=== PATIENT | female | born 1980 | race Hispanic/Latino ===

== ENCOUNTER 2016-10-27 11:30 | Day surgery (SDC) | payer MEDICAID ==
[2016-10-25 13:22] LABS: Hematocrit 28.4 % (30.3-42.9); Hemoglobin 8.6 gm/dl (10.1-14.3)
[~2016-10-27 11:30] MED LIST: BENADRYL PO ONE; NACL 0.9% 250ML 250 ML IV ONE; TYLENOL PO ONE
[2016-10-27] MEDS ORDERED: LASIX IV ONE (13:30)
[2016-10-27] MEDS ORDERED: FLUSH HEPARIN IV ONE (14:37)
[2016-10-27 16:46] VITALS: BP 145/86
== END 2016-10-27 16:45 | disposition home or self-care (01) ==
LOC: OPU 11:30
DX: D64.9 Anemia, unspecified (principal)
CPT/HCPCS: 36415; 36430; 85018; 86850; 86900; 86901; 86920; 96374; 96375; J1642; J1720; J1940; J7050; P9016

== ENCOUNTER 2017-12-05 09:11 | Emergency (ER) | payer MEDICAID, OTHER ==
[2017-12-05 09:59] LABS: Basophils # (Auto) 0.1 K/mm3 (0.0-0.1); Basophils % (Auto) 1.8 % (0.0-1.8); Eosinophils # (Auto) 0.1 K/mm3 (0.0-0.4); Eosinophils % (Auto) 1.3 % (0.0-4.3); Lymphocytes # (Auto) 2.1 K/mm3 (1.2-5.4); Lymphocytes % (Auto) 27.6 % (13.4-35.0); Mean Corpuscular HGB Conc 29 % (30-34); Monocytes # (Auto) 0.6 K/mm3 (0.0-0.8); Monocytes % (Auto) 8.3 % (0.0-7.3); Platelet Count 383 K/mm3 (140-440); Red Blood Count 3.61 M/mm3 (3.65-5.03)
[2017-12-05 10:05] LABS: Hematocrit 22.3 % (30.3-42.9); Hemoglobin 6.4 gm/dl (10.1-14.3); Mean Corpuscular Volume 62 fl (79-97)
[2017-12-05 10:06] LABS: Mean Corpuscular Hemoglobin 18 pg (28-32); Red Cell Distribution Width 24.8 % (13.2-15.2)
[2017-12-05 10:09] LABS: BUN/Creatinine Ratio 27; Blood Urea Nitrogen 16 mg/dL (7-17); Calcium 9.3 mg/dL (8.4-10.2); Hemolysis Index 4
[2017-12-05 10:50] LABS: INR 0.82 (0.87-1.13)
--- NOTE | 2017-12-05 11:17 | Cat Scan Report ---
CT HEAD WITHOUT CONTRAST INDICATION: CVA signs and symptoms 3 days ago with left facial droop. Breast cancer. COMPARISON: 09/21/2015. FINDINGS: Noncontrast head CT demonstrates stable ventricles and sulci without acute or recent infarct, hemorrhage, mass effect or midline shift. No abnormal extra-axial fluid collections. Posterior fossa structures and basilar cisterns appear within normal limits. Symmetric imaged eye globes. Clear visualized paranasal sinuses and mastoid air cells. Intact calvarium. Normal overlying scalp soft tissues. Anterior maxillary radiopaque dental material again noted. CONCLUSION: No acute intracranial CT abnormality, as described. Thank you for the opportunity to participate in this patient's care.
--- NOTE | 2017-12-05 11:22 | Emergency Department Report ---
- General Chief complaint: Neuro Symptoms/Deficit Stated complaint: WEAK, RIGHT ARM PAIN, LEFT SIDE FACE NUMB Time Seen by Provider: 12/05/17 10:02 Source: patient Mode of arrival: Ambulatory Limitations: No Limitations - History of Present Illness Initial comments: Ms. Momin is a very pleasant 37-year-old female with history of breast cancer. On Sunday she noticed weakness in her right hand and right leg. She felt as if she had to brass pickler her leg. She was able to walk and work without difficulty since that time. On Sunday morning she noticed left facial droop. She denies headache. Denies visual changes. She does not have the right-sided weakness currently. No previous history of CVA. 2 years ago she was treated for stage III breast cancer involving the rib cage, chest wall and lymph nodes. She underwent radiation and chemotherapy after 2 breast surgeries. She is currently in remission there has been unable to follow -up with oncologist due to lack of health insurance. MD Complaint: focal weakness -: Sudden, days(s) (5) Location: RUE, RLE, L face Consistency: constant (left facial weakness still present), now resolved (right- sided weakness, resolved) Improves with: none Worsens with: none Associated Symptoms: denies other symptoms - Related Data Home Medications Medication Instructions Recorded Confirmed Last Taken Ascorbic Acid [Vitamin C] 500 mg PO BID 07/31/16 10/27/16 10/26/16 Ferrous Sulfate [Feosol] 325 mg PO BID 07/31/16 10/27/16 10/26/16 Previous Rx's Medication Instructions Recorded Last Taken Type Acyclovir [Zovirax Tab] 400 mg PO 5XD 10 Days #50 tablet 12/05/17 Unknown Rx Dextran 70/Hypromellose 1 each OS 5XD #1 droperette 12/05/17 Unknown Rx [Artificial Tears] Mineral Oil/Petrolatum,White 7 gm OS QHS #7 oint...g. 12/05/17 Unknown Rx [Refresh Lacri-Lube Ointment] predniSONE [Deltasone] 60 mg PO QDAY 6 Days #18 tab 12/05/17 Unknown Rx Allergies Allergy/AdvReac Type Severity Reaction Status Date / Time No Known Allergies Allergy Verified 11/25/15 13:01 ED Review of Systems ROS: Stated complaint: WEAK, RIGHT ARM PAIN, LEFT SIDE FACE NUMB Other details as noted in HPI Comment: All other systems reviewed and negative Constitutional: denies: chills, fever, malaise Respiratory: denies: cough Cardiovascular: denies: chest pain Neurological: weakness. denies: headache, numbness, paresthesias, confusion, abnormal gait, vertigo ED Past Medical Hx - Past Medical History Previous Medical History?: Yes Hx Hypertension: Yes Hx Congestive Heart Failure: No Hx Diabetes: No Hx Asthma: No Hx COPD: No Hx HIV: No Additional medical history: right breast pain - Surgical History Past Surgical History?: Yes Hx Breast Surgery: Yes (RIGHT MASTECTOMY NOV 2015) - Social History Smoking Status: Never Smoker Substance Use Type: Prescribed - Medications Home Medications: Home Medications Medication Instructions Recorded Confirmed Last Taken Type Ascorbic Acid [Vitamin C] 500 mg PO BID 07/31/16 10/27/16 10/26/16 History Ferrous Sulfate [Feosol] 325 mg PO BID 07/31/16 10/27/16 10/26/16 History Acyclovir [Zovirax Tab] 400 mg PO 5XD 10 Days #50 tablet 12/05/17 Unknown Rx Dextran 70/Hypromellose 1 each OS 5XD #1 droperette 12/05/17 Unknown Rx [Artificial Tears] Mineral Oil/Petrolatum,White 7 gm OS QHS #7 oint...g. 12/05/17 Unknown Rx [Refresh Lacri-Lube Ointment] predniSONE [Deltasone] 60 mg PO QDAY 6 Days #18 tab 12/05/17 Unknown Rx ED Physical Exam - General Limitations: No Limitations General appearance: alert, in no apparent distress, other (no spontaneous blinking on the left side,) - Head Head exam: Present: atraumatic, normocephalic - Eye Eye exam: Present: normal appearance, PERRL, EOMI. Absent: scleral icterus, conjunctival injection, nystagmus Pupils: Present: normal accommodation - ENT ENT exam: Present: normal exam, mucous membranes moist - Neck Neck exam: Present: normal inspection. Absent: meningismus - Respiratory Respiratory exam: Present: normal lung sounds bilaterally. Absent: respiratory distress, wheezes, rales, rhonchi, stridor - Cardiovascular Cardiovascular Exam: Present: regular rate, normal rhythm, normal heart sounds. Absent: systolic murmur, diastolic murmur, rubs, gallop - GI/Abdominal GI/Abdominal exam: Present: soft, normal bowel sounds. Absent: distended, tenderness, guarding, rebound - Extremities Exam Extremities exam: Present: normal inspection, full ROM, normal capillary refill. Absent: tenderness, pedal edema - Back Exam Back exam: Present: normal inspection - Neurological Exam Neurological exam: Present: alert, oriented X3, normal gait, reflexes normal, other (left facial paralysis involving the upper and lower face involved, cranial nerves otherwise intact [id number] without dysmetria, 5 out of 5 strength in all 4 extremities sensation to light touch in all 4 extremities) . Absent: motor sensory deficit - Psychiatric Psychiatric exam: Present: normal affect, normal mood - Skin Skin exam: Present: warm, dry, intact, normal color. Absent: rash ED Course Vital Signs 12/05/17 12/05/17 09:28 11:01 Temperature 98.9 F Pulse Rate 124 H 104 H Respiratory 20 16 Rate Blood Pressure 121/67 Blood Pressure 121/67 [Left] O2 Sat by Pulse 100 100 Oximetry ED Medical Decision Making - Lab Data Result diagrams: 12/05/17 09:39 12/05/17 09:39 Laboratory Results - last 24 hr 12/05/17 12/05/17 12/05/17 09:39 09:39 09:39 WBC 7.7 RBC 3.61 L Hgb 6.4 L Hct 22.3 L MCV 62 L MCH 18 L MCHC 29 L RDW 24.8 H Plt Count 383 Lymph % (Auto) 27.6 Lamb % (Auto) 8.3 H Eos % (Auto) 1.3 Baso % (Auto) 1.8 Lymph # 2.1 Lamb # 0.6 Eos # 0.1 Baso # 0.1 Seg Neutrophils % 61.0 Seg Neutrophils # 4.7 PT 11.7 L INR 0.82 L APTT 26.0 Thrombin Time Sodium 139 Potassium 3.6 Chloride 101.8 Carbon Dioxide 24 Anion Gap 17 BUN 16 Creatinine 0.6 L Estimated GFR > 60 BUN/Creatinine Ratio 27 Glucose 114 H Calcium 9.3 Troponin T < 0.010 12/05/17 09:39 WBC RBC Hgb Hct MCV MCH MCHC RDW Plt Count Lymph % (Auto) Lamb % (Auto) Eos % (Auto) Baso % (Auto) Lymph # Lamb # Eos # Baso # Seg Neutrophils % Seg Neutrophils # PT INR APTT Thrombin Time 16.4 Sodium Potassium Chloride Carbon Dioxide Anion Gap BUN Creatinine Estimated GFR BUN/Creatinine Ratio Glucose Calcium Troponin T Vital Signs - 24 hr 12/05/17 12/05/17 09:28 11:01 Temperature 98.9 F Pulse Rate 124 H 104 H Respiratory 20 16 Rate Blood Pressure 121/67 Blood Pressure 121/67 [Left] O2 Sat by Pulse 100 100 Oximetry - EKG Data 12/05/17 11:25 EKG obtained at 0 937 Sinus tachycardia of 113 bpm normal axis normal QT interval normal MT interval normal Qt interval no signs of infarct nonspecific T-wave pattern 12/05/17 15:56 No - Medical Decision Making 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 Unclear the etiology of right arm/hand and leg weakness. Will obtain MRI to rule out CVA, brain infarct. I spoke with radiologist who read the MRI. MRI brain negative for infarct. Unfortunately, MRI brain revealed 2.6 cm mass in the posterior fossa near the skull base. He recommended MRI brain with IV contrast. My colleague will f/u MRI results. Patient's oncologist is Dr. Winkler. Critical care attestation.: If time is entered above; I have spent that time in minutes in the direct care of this critically ill patient, excluding procedure time. ED Disposition Clinical Impression: Alcantara's palsy, Brain mass, Breast cancer Disposition: - TO HOME OR SELFCARE Is pt being admited?: No Does the pt Need Aspirin: No Condition: Stable Instructions: Alcantara Palsy (ED) Prescriptions: Mineral Oil/Petrolatum,White [Refresh Lacri-Lube Ointment] 7 gm OS QHS #7 oint...g. Acyclovir [Zovirax Tab] 400 mg PO 5XD 10 Days #50 tablet Dextran 70/Hypromellose [Artificial Tears] 1 each OS 5XD #1 droperette predniSONE [Deltasone] 60 mg PO QDAY 6 Days #18 tab
[2017-12-05] MEDS ORDERED: DELTASONE PO ONE (13:08)
[2017-12-05] MEDS ORDERED: ZOVIRAX PO ONE (14:08)
[2017-12-05] MEDS ORDERED: DELTASONE ONE (15:31)
--- NOTE | 2017-12-05 15:57 | Magnetic Resonance Report ---
MRA HEAD WITHOUT CONTRAST INDICATION: Right-sided weakness, facial droop. Breast cancer. COMPARISON: None similar. FINDINGS: MRA of the head performed without intravenous contrast and demonstrates no evidence of flow-limiting stenosis, occlusion or vascular malformation. Please note that detection of aneurysms less than 5 mm is limited on this exam. CONCLUSION: Normal study of the [place]. Thank you for the opportunity to participate in this patient's care.
--- NOTE | 2017-12-05 17:45 | Magnetic Resonance Report ---
FINAL REPORT EXAM: MR BRAIN WO CON HISTORY: left facial weakness right-sided weakness TECHNIQUE: MRI brain without contrast PRIORS: None. FINDINGS: There is normal signal throughout the brain parenchyma. No evidence for brain edema pattern or mass effect. Ventricles and sulci are within normal limits. No evidence for acute intra-axial or extra-axial hemorrhage. No evidence for acute restriction on diffusion-weighted study. Brainstem and posterior fossa structures are unremarkable. IMPRESSION: Negative. No focal abnormality identified
--- NOTE | 2017-12-05 18:00 | Magnetic Resonance Report ---
FINAL REPORT EXAM: MR BRAIN W CON HISTORY: brain mass TECHNIQUE: MRI brain with contrast PRIORS: Correlated with noncontrast MR of the same date FINDINGS: On postcontrast exam no foci of abnormal parenchymal enhancement are identified. No evidence for meningeal thickening. There is an enhancing mass at the left cerebellopontine angle extending into the left mastoid with some dural enhancement noted. The mass measures 3.1 x 2.0 by 1.4 centimeters. There is relatively homogeneous enhancement mass does not extend to the internal auditory canal. It is slightly hypointense to brain parenchyma on T1 weighted sequence and hyperintense on T2 weighted sequence. No evidence for restriction on diffusion-weighted image IMPRESSION: Left cerebellopontine angle mass. Differential considerations include schwannoma, ependymoma or meningioma
--- NOTE | 2017-12-05 18:07 | Emergency Department Report ---
Blank Doc - Documentation Documentation: Asked to follow-up on MRI report by Dr. Padilla. FINAL REPORT EXAM: MR BRAIN W CON HISTORY: brain mass TECHNIQUE: MRI brain with contrast PRIORS: Correlated with noncontrast MR of the same date FINDINGS: On postcontrast exam no foci of abnormal parenchymal enhancement are identified. No evidence for meningeal thickening. There is an enhancing mass at the left cerebellopontine angle extending into the left mastoid with some dural enhancement noted. The mass measures 3.1 x 2.0 by 1.4 centimeters. There is relatively homogeneous enhancement mass does not extend to the internal auditory canal. It is slightly hypointense to brain parenchyma on T1 weighted sequence and hyperintense on T2 weighted sequence. No evidence for restriction on diffusion-weighted image IMPRESSION: Left cerebellopontine angle mass. Differential considerations include schwannoma, ependymoma or meningioma Transcribed By: CLAUS Dictated By: CORY RANDHAWA MD Electronically Authenticated By: CORY RANDHAWA MD Signed Date/Time: 12/05/171354 DD/ 54 TD/TT: 12/05/171354 Patient also complains of numbness and weakness of the right upper and lower extremity. Hospitalist paged for admission (Dr Whatley)
--- NOTE | 2017-12-05 18:30 | History and Physical Report ---
History of Present Illness Chief complaint: I feel weak, and my face in numb History of present illness: 37 YO Female with Breast Cancer S/P Mastectomy Chemo and Radiation therapy presents to ED for evaluation. Pt states that she has experienced weakness in her right hand and right leg as well as left facial droop over the past 5 days with worsening symptoms over the past 1day. . Pt state that she in unable to walk due to right leg weakness. No reports of fever, chills, CP, Palpitations, NVD, Syncope, Productive cough, Trauma, loss of bowel or bladder continence, or recent ill contacts. Pt seen and evaluated in ED and underwent MRI brain which revealed Left Cerebellopontine angle lesion. Neurosurgery consulted and recommend transfer to tertiary facility. Past History Past Medical History: cancer Past Surgical History: mastectomy Social history: Family history: hypertension Medications and Allergies Allergies Allergy/AdvReac Type Severity Reaction Status Date / Time No Known Allergies Allergy Verified 11/25/15 13:01 Home Medications Medication Instructions Recorded Confirmed Last Taken Type No Known Home Medications [No 12/05/17 12/05/17 Unknown History Reported Home Medications] Review of Systems Constitutional: no weight loss, no weight gain, no fever, no chills Ears, nose, mouth and throat: no ear pain, no ear discharge, no tinnitis, no decreased hearing, no nose pain Breasts: no change in shape, no swelling, no mass Cardiovascular: no chest pain, no orthopnea, no palpitations, no rapid/ irregular heart beat, no edema, no syncope Respiratory: no cough, no cough with sputum, no excessive sputum, no hemoptysis , no shortness of breath, no dyspnea on exertion Gastrointestinal: no abdominal pain, no nausea, no vomiting, no diarrhea, no constipation, no change in bowel habits Genitourinary Female: no pelvic pain, no flank pain, no menorrhagia, no dysuria , no urinary frequency, no urgency, no stress incontinence Menstruation: no currently menstrual, no premenarcheal, no post hysterectomy, no ammenorrhea, no ammenorrhea on BC, no period normal, no period heavy Rectal: no pain, no incontinence, no bleeding Musculoskeletal: no neck stiffness, no neck pain, no shooting arm pain, no arm numbness/tingling, no low back pain, no shooting leg pain Integumentary: no rash, no pruritis, no redness, no sores, no wounds, no jaundice, no boils Neurological: no head injury, no transient paralysis, no paralysis, no weakness , no parathesias, no numbness, no tingling, no seizures Psychiatric: no anxiety, no memory loss, no change in sleep habits, no sleep disturbances, no insomnia, no hypersomnia, no change in appetite, no change in libido Endocrine: no cold intolerance, no heat intolerance, no polyphagia, no excessive thirst, no polydipsia, no polyuria, no nocturia, no excessive sweating Hematologic/Lymphatic: no easy bruising, no easy bleeding, no lymphadenopathy, no lymphedema Allergic/Immunologic: no urticaria, no allergic rhinitis, no wheezing Exam - Constitutional Vitals: Temp Pulse Resp BP Pulse Ox 98.9 F 99 H 16 115/88 100 12/05/17 09:28 12/05/17 15:45 12/05/17 15:45 12/05/17 15:45 12/05/17 15:45 General appearance: Present: mild distress - EENT Eyes: Present: PERRL ENT: hearing intact, clear oral mucosa - Neck Neck: Present: supple, normal ROM - Respiratory Respiratory effort: normal Respiratory: bilateral: CTA - Cardiovascular Heart Sounds: Present: S1 & S2. Absent: rub, click - Extremities Extremities: pulses symmetrical, No edema Peripheral Pulses: within normal limits - Abdominal General gastrointestinal: Present: soft, non-tender, non-distended, normal bowel sounds Female genitourinary: Present: normal - Integumentary Integumentary: Present: clear, warm, dry - Musculoskeletal Musculoskeletal: right sided weakness - Psychiatric Psychiatric: appropriate mood/affect, intact judgment & insight - Neurologic Neurologic: focal deficits, moves all extremities, no gait normal Results - Labs CBC & Chem 7: 12/05/17 09:39 12/05/17 09:39 Labs: Abnormal lab results 12/05/17 12/05/17 12/05/17 Range/Units 09:39 09:39 09:39 RBC 3.61 L (3.65-5.03) M/mm3 Hgb 6.4 L (10.1-14.3) gm/dl Hct 22.3 L (30.3-42.9) % MCV 62 L (79-97) fl MCH 18 L (28-32) pg MCHC 29 L (30-34) % RDW 24.8 H (13.2-15.2) % [place] % (Auto) 8.3 H (0.0-7.3) % PT 11.7 L (12.2-14.9) Sec. INR 0.82 L (0.87-1.13) Creatinine 0.6 L (0.7-1.2) mg/dL Glucose 114 H (65-100) mg/dL Assessment and Plan - Patient Problems (1) Brain mass Current Visit: Yes Status: Acute Plan to address problem: CT Head, MRI Brain, MRA Brain, Nerurosurgery consulted, Serial neuro exam, Transfer to tertiary facility for Neurosurgical care and evaluation. (2) Hemiparesis Current Visit: Yes Status: Acute Qualifiers: Hemiparesis laterality: right dominant side Plan to address problem: CT head, MRI, MRA, Neuro checks, supportive care. (3) Breast cancer Current Visit: Yes Status: Acute Qualifiers: Laterality: right Plan to address problem: S/P chemo and radiation therapy, Outpatient oncology F/U. (4) DVT prophylaxis Current Visit: Yes Status: Acute
[2017-12-05 20:22] VITALS: BP 115/71
== END 2017-12-05 21:38 | disposition home or self-care (01) ==
LOC: ED 09:11
DX: G51.0 Bell's palsy (principal); Z85.3 Personal history of malignant neoplasm of breast; I10 Essential (primary) hypertension; Z90.11 Acquired absence of right breast and nipple; G93.89 Other specified disorders of brain
CPT/HCPCS: 36415; 70450; 70544; 70551; 70552; 80048; 84484; 85025; 85610; 85670; 85730; 93005; 93010; 99284; A9577; J7512

== ENCOUNTER 2019-12-22 08:46 | Observation (INO) | payer MEDICARE ==
[2019-12-22] MEDS ORDERED: SODIUM CHLORIDE 0.9% 1000 ML 1,000 ML IV ONE (09:23)
--- NOTE | 2019-12-22 09:23 | Emergency Department Report ---
HPI - General Chief Complaint: Chest Pain Time Seen by Provider: 12/22/19 09:06 - HPI HPI: 39-year-old -Citizen Of [place] female presents to the emergency department via EMS from home with complaint of acute shortness of breath that started just after waking up while the patient was going to the bathroom. She denies any fever, chest pain, coughing, lower extremity swelling, back pain. She did not take anything for symptoms prior to presentation. Patient has a past medical history of previous brain mass on chemotherapy, spinal surgery in July of last year, and history of hypertension. She is not on any anticoagulation. No recent travel or sick contacts at home. Her primary care physician is Dr. Rogelio Lawrence and her oncologist is a Dr. Garcia at [facility]. ED Past Medical Hx - Past Medical History Previous Medical History?: Yes Hx Hypertension: No Hx CVA: No Hx Congestive Heart Failure: No Hx Diabetes: No Hx Deep Vein Thrombosis: No Hx Arthritis: No Hx Seizures: No Hx Asthma: No Hx COPD: No Hx HIV: No Additional medical history: right breast pain - Surgical History Past Surgical History?: Yes Hx Breast Surgery: Yes (RIGHT MASTECTOMY NOV 2015) - Social History Smoking Status: Never Smoker Substance Use Type: None - Medications Home Medications: Home Medications Medication Instructions Recorded Confirmed Last Taken Type No Known Home Medications [No 12/05/17 12/05/17 Unknown History Reported Home Medications] ED Review of Systems ROS: Stated complaint: POSS STEMI Other details as noted in HPI Comment: All other systems reviewed and negative Constitutional: denies: chills, fever Eyes: denies: eye pain, vision change ENT: denies: ear pain, throat pain Respiratory: shortness of breath. denies: cough Cardiovascular: denies: chest pain, edema Gastrointestinal: denies: abdominal pain, vomiting Genitourinary: denies: dysuria, discharge Musculoskeletal: denies: back pain, arthralgia Skin: denies: rash, lesions Neurological: denies: headache, weakness Physical Exam - Physical Exam Vital Signs: Vital Signs 12/22/19 09:08 Temperature 98.5 F Pulse Rate 97 H Respiratory 16 Rate Blood Pressure 124/82 O2 Sat by Pulse 95 Oximetry Physical Exam: GENERAL: The patient is well-developed well-nourished. HENT: Normocephalic. Atraumatic. Patient has moist mucous membranes. EYES: Extraocular motions are intact. NECK: Supple. Trachea is midline. CHEST/LUNGS: Clear to auscultation. There is no respiratory distress noted. HEART/CARDIOVASCULAR: Regular. There is mild to moderate tachycardia. There is no murmur. ABDOMEN: Abdomen is soft, nontender. Patient has normal bowel sounds. There is no abdominal distention. SKIN: Skin is warm and dry. NEURO: The patient is awake, alert, and oriented. The patient is cooperative. Normal speech. MUSCULOSKELETAL: There is no tenderness or deformity. There is no evidence of acute injury. ED Course Vital Signs 12/22/19 09:08 Temperature 98.5 F Pulse Rate 97 H Respiratory 16 Rate Blood Pressure 124/82 O2 Sat by Pulse 95 Oximetry - Consultations Consultation #1: 12/22/19 17:13 I spoke with the general surgeon on-call, Dr. Edgar, regarding the CT angiography chest findings of small right-sided pneumothorax. She took a look at the imaging study and did not feel that it was something that would be a ppropriately treated by a chest tube. She has agreed to consult on this patient. ED Medical Decision Making - Lab Data Result diagrams: 12/22/19 10:06 12/22/19 10:06 - EKG Data -: EKG Interpreted by Me EKG shows normal: sinus rhythm, axis, intervals, QRS complexes, ST-T waves Rate: tachycardia (124 bpm) - EKG Data When compared to previous EKG there are: previous EKG unavailable Interpretation: other (Sinus tach at 124 bpm) - Radiology Data Radiology results: report reviewed, image reviewed interpreted by me: Chest x-ray shows elevated left-sided hemidiaphragm with underlying bowel gas and stool. No obvious pneumonia, pleural effusions. CT angio chest INDICATION / CLINICAL INFORMATION: SOB, elevated dimer. TECHNIQUE: Axial CT images were obtained after injection of Omnipaque 350, 100 cc IV contrast using CTA protocol. 3 plane MIP / 3D reconstructions were produced. All CT scans at this location are performed using CT dose reduction for ALARA by means of automated exposure control. COMPARISON: Chest x-ray earlier the same day. FINDINGS: Negative for aneurysm, dissection or pulmonary embolus. Elevation of the left hemidiaphragm remains with moderate parenchymal opacity likely representing atelectasis. Milder changes are present the right base. Mild interstitial thickening likely represents underlying edema and mild chronic interstitial disease. A right pneumothorax is small. Negative for significant pleural fluid. No suspicious mediastinal mass or adenopathy. Previo us posterior fusion at the thoracic spine. Underlying compression and bony abnormality is partially imaged inferiorly. IMPRESSION: 1. Negative for pulmonary embolus or definitive pneumonia. 2. Mild edema, mild chronic interstitial disease and small right pneumothorax. 3. Elevation the left hemidiaphragm. Suspected basilar atelectasis left greater than right. - Medical Decision Making This patient presents with some acute shortness of breath that started after she woke up this morning. On examination the patient has some tachycardia and mild tachypnea but does not appear in any respiratory or acute distress. She was given a breathing treatment and a few doses of pain medication. EKG did not show any signs of ST elevation NE or dysrhythmia. Chest x-ray showed a moderately elevated left hemidiaphragm with some bowel gas and stool underneath. Patient's labs were mostly unremarkable including negative troponins x2 but she did have an elevated d-dimer level of about 1000. For this reason a CT angiography of the chest was done that did not show any pulmonary embolism, dissection, but did show a small right-sided pneumothorax. There was also some mild interstitial edema versus interstitial lung disease, however BNP was very low, and the patient does not appear to have congestive heart failure. General surgery was contacted and consulted. The patient will be admitted to the hospital for further evaluation and treatment and was accepted for admission by the hospitalist, Dr. Whatley. - Differential Diagnosis PE, pneumonia, CHF, pneumothorax Critical Care Time: Yes Critical care time in (mins) excluding proc time.: 35 Critical care attestation.: If time is entered above; I have spent that time in minutes in the direct care of this critically ill patient, excluding procedure time. Due to the immediate potential for life-threatening deterioration due to underlying pulmonary condition, I spent 35 minutes of critical care time with the patient. Critical care time was spent on this patient in doing her initial evaluation, multiple re-evaluations, ordering and interpretation of labs and imaging, discussion with the general surgeon and multiple discussion with the patient. Critical Care Time: 35 minutes ED Disposition Clinical Impression: Pneumothorax, right, Hypokalemia Dyspnea Qualifiers: Dyspnea type: shortness of breath Qualified Code(s): R06.02 - Shortness of breath; R06.00 - Dyspnea, unspecified; R06.01 - Orthopnea Disposition: DC-09 OP ADMIT IP TO THIS HOSP Is pt being admited?: Yes Condition: Serious Time of Disposition: 17:17
--- NOTE | 2019-12-22 09:53 | XRay Report ---
CHEST 1 VIEW 12/22/2019 8:41 AM INDICATION / CLINICAL INFORMATION: MAIN: SOB; CHEST PAIN. COMPARISON: Chest x-ray 08/11/2016 FINDINGS: SUPPORT DEVICES: Left subclavian Port-A-Cath has tip in SVC. HEART / MEDIASTINUM: No significant abnormality. LUNGS / PLEURA: Mild interstitial edema, new moderate elevation left hemidiaphragm with left basilar atelectasis No pneumothorax. ADDITIONAL FINDINGS: No significant additional findings. IMPRESSION: 1. Mild CHF. 2. Elevated left hemidiaphragm, new since previous study. Signer Name: Mark Raymundo MD Signed: 12/22/2019 9:49 AM Workstation Name: [id number]
[2019-12-22] MEDS ORDERED: IPRATROPIUM/ALBUTEROL SULFATE 3 ML AMPUL.NEB IH ONE (10:59)
[2019-12-22 11:02] LABS: Basophils % (Auto) 0.2 % (0.0-1.8); Eosinophils % (Auto) 0.2 % (0.0-4.3); Hemoglobin 10.2 gm/dl (10.1-14.3); Lymphocytes # (Auto) 0.3 K/mm3 (1.2-5.4); Mean Corpuscular HGB Conc 32 % (30-34); Mean Corpuscular Volume 79 fl (79-97); Monocytes # (Auto) 0.7 K/mm3 (0.0-0.8); Monocytes % (Auto) 12.6 % (0.0-7.3); Platelet Count 333 K/mm3 (140-440); Red Blood Count 4.04 M/mm3 (3.65-5.03)
[2019-12-22 11:07] LABS: Red Cell Distribution Width 22.6 % (13.2-15.2)
[2019-12-22 11:27] LABS: Alanine Aminotransferase 24 units/L (7-56); Albumin 3.7 g/dL (3.9-5); BUN/Creatinine Ratio 30; Blood Urea Nitrogen 9 mg/dL (7-17); Calcium 8.8 mg/dL (8.4-10.2); Hemolysis Index 2
[2019-12-22] MEDS ORDERED: POTASSIUM CHLORIDE ER 10 MEQ TAB PO ONE (11:29)
[2019-12-22] MEDS ORDERED: MORPHINE 4 MG/1 ML INJ IV ONE ×3 (11:43→16:23)
[2019-12-22] MEDS ORDERED: MORPHINE 2 MG/1 ML INJ ONE (13:50)
--- NOTE | 2019-12-22 15:34 | Cat Scan Report ---
CT angio chest INDICATION / CLINICAL INFORMATION: SOB, elevated dimer. TECHNIQUE: Axial CT images were obtained after injection of Omnipaque 350, 100 cc IV contrast using CTA protocol . 3 plane MIP / 3D reconstructions were produced. All CT scans at this location are performed using C T dose reduction for ALARA by means of automated exposure control. COMPARISON: Chest x-ray earlier the same day. FINDINGS: Negative for aneurysm, dissection or pulmonary embolus. Elevation of the left hemidiaphragm remains w ith moderate parenchymal opacity likely representing atelectasis. Milder changes are present the righ t base. Mild interstitial thickening likely represents underlying edema and mild chronic interstitial disease . A right pneumothorax is small. Negative for significant pleural fluid. No suspicious mediastinal mass or adenopathy. Previous posterior fusion at the thoracic spine. Underlying compression and bony abnormality is parti ally imaged inferiorly. IMPRESSION: 1. Negative for pulmonary embolus or definitive pneumonia. 2. Mild edema, mild chronic interstitial disease and small right pneumothorax. 3. Elevation the left hemidiaphragm. Suspected basilar atelectasis left greater than right. Signer Name: Long Lau MD Signed: 12/22/2019 3:30 PM Workstation Name: [id number]
[2019-12-22] MEDS ORDERED: ALBUTEROL 2.5 MG/3 ML NEBU IH PRN (16:10)
[2019-12-22] MEDS ORDERED: ONDANSETRON 4 MG/2 ML INJ IV PRN (16:10)
[2019-12-22] MEDS ORDERED: ACETAMINOPHEN 325 MG TAB PO PRN (16:10)
--- NOTE | 2019-12-22 16:10 | History and Physical Report ---
History of Present Illness Chief complaint: It hurts when i breathe History of present illness: 39 YO Female with BrCA S/P Mastectomy presents to ED for evaluation. Patient states that upon awaking from sleep today and while walking to the bathroom she experienced a sudden onset of chest pain and shortness of breath. Patient states that the pain is worsened with deep breathing and relieved somewhat with rest and shallow breathing. EMS notified and upon arrival the patient was found to be in distress and subsequently transported to [facility] for further evaluation and care. Patient seen and evaluated in the emergency department. Lab and imaging studies reviewed. Patient found to have a small right apical pneumothorax on CT scan of the chest. Patient placed on supplemental oxygen. Surgery team consult placed in ED. Patient placed in observation status and admitted to medical floor. Patient denies fever, chills, palpitations, trauma, unintentional weight loss, bone pain, night sweats, recent ill contacts. No prior admission for review. No medication listed for reconciliation at time of admission. Past History Past Medical History: cancer, other (See HPI) Past Surgical History: mastectomy Social history: . denies: smoking, alcohol abuse, prescription drug abuse Family history: no significant family history (Reviewed) Medications and Allergies Allergies Allergy/AdvReac Type Severity Reaction Status Date / Time No Known Allergies Allergy Verified 11/25/15 13:01 Home Medications Medication Instructions Recorded Confirmed Last Taken Type No Known Home Medications [No 12/05/17 12/05/17 Unknown History Reported Home Medications] Active Meds: Active Medications Sodium Chloride (Nacl 0.9% 1000 Ml) 1,000 mls @ 125 mls/hr IV ONCE ONE Stop: 12/22/19 17:22 Last Admin: 12/22/19 09:35 Dose: 125 mls/hr Documented by: Review of Systems Constitutional: no weight loss, no weight gain, no fever, no chills Ears, nose, mouth and throat: no ear pain, no ear discharge, no tinnitis, no nose pain, no nasal congestion, no nasal discharge Breasts: no change in shape, no swelling, no mass Cardiovascular: chest pain, shortness of breath Respiratory: shortness of breath, pleurisy Gastrointestinal: no abdominal pain, no nausea, no vomiting, no diarrhea, no constipation Genitourinary Female: no pelvic pain, no flank pain, no menorrhagia, no dysuria, no urinary frequency, no urgency Rectal: no pain, no incontinence, no bleeding Musculoskeletal: no neck stiffness, no neck pain, no shooting arm pain, no arm numbness/tingling Integumentary: no rash, no pruritis, no redness, no sores, no wounds Neurological: no head injury, no transient paralysis, no tingling, no seizures, no syncope Psychiatric: no anxiety, no memory loss, no change in sleep habits, no sleep disturbances, no insomnia, no change in libido Endocrine: no cold intolerance, no heat intolerance, no polyphagia, no polydipsia, no nocturia, no excessive sweating, no flushing Hematologic/Lymphatic: no easy bruising, no easy bleeding, no lymphadenopathy Allergic/Immunologic: no urticaria, no persistent infections, no angioedema Exam - Constitutional Vitals: Temp Pulse Resp BP Pulse Ox 98.5 F 130 H 16 137/88 96 12/22/19 09:08 12/22/19 15:12 12/22/19 15:12 12/22/19 15:12 12/22/19 15:12 General appearance: Present: mild distress - EENT Eyes: Present: PERRL ENT: hearing intact, clear oral mucosa - Neck Neck: Present: supple, normal ROM - Respiratory Respiratory effort: normal Respiratory: right: diminished - Cardiovascular Heart Sounds: Present: S1 & S2. Absent: rub, click - Extremities Extremities: pulses symmetrical, No edema Peripheral Pulses: within normal limits - Abdominal General gastrointestinal: Present: soft, non-tender, non-distended, normal bowel sounds Female genitourinary: Present: normal - Integumentary Integumentary: Present: clear, warm, dry - Musculoskeletal Musculoskeletal: gait normal, strength equal bilaterally - Psychiatric Psychiatric: appropriate mood/affect, intact judgment & insight - Neurologic Neurologic: CNII-XII intact, moves all extremities Results - Labs CBC & Chem 7: 12/22/19 10:06 12/22/19 10:06 Labs: Abnormal lab results 12/22/19 12/22/19 12/22/19 Range/Units 10:06 10:06 10:06 MCH 25 L (28-32) pg RDW 22.6 H (13.2-15.2) % Lymph % (Auto) 6.0 L (13.4-35.0) % Cooper % (Auto) 12.6 H (0.0-7.3) % Lymph # 0.3 L (1.2-5.4) K/mm3 Seg Neutrophils % 81.0 H (40.0-70.0) % D-Dimer 1030.12 H (0-234) ng/mlDDU Sodium 136 L (137-145) mmol/L Potassium 3.3 L (3.6-5.0) mmol/L Creatinine 0.3 L (0.7-1.2) mg/dL Glucose 118 H (65-100) mg/dL Albumin 3.7 L (3.9-5) g/dL Assessment and Plan - Patient Problems (1) Pneumothorax, right Current Visit: Yes Status: Acute Plan to address problem: Chest x-ray, CT chest, pulmonary team consult placed in ED, surgical team consult in ED, repeat chest x-ray in a.m., submental oxygen, pain control, supportive care. (2) Hypokalemia Current Visit: Yes Status: Acute Plan to address problem: Dietary repletion, supportive care. (3) DVT prophylaxis Current Visit: No Status: Acute Plan to address problem: SCD to bilateral lower extremities while in bed, patient is amatory.
[2019-12-22] MEDS: MORPHINE 2 MG/1 ML INJ IV PRN (23:04)
[2019-12-23] MEDS: MORPHINE 2 MG/1 ML INJ IV PRN (03:18)
--- NOTE | 2019-12-23 08:14 | Consultation ---
History of Present Illness Consult date: 12/23/19 Reason for consult: other (Right pneumothorax) Chief complaint: Shortness of breath - History of present illness History of present illness: 39-year-old female with a past medical history of breast cancer who presented to the emergency room with shortness of breath and tachycardia. The patient states that the shortness of breath started suddenly yesterday. She denies trauma to the area. She does complain of bilateral hip pain. She states that she is currently still undergoing chemotherapy. Work-up in the ER ruled out pulmonary embolism. CT of the chest showed a very small right sided pneumothorax. Of note, the patient does have a history of extensive right sided chest wall surgery with reconstruction due to involvement of the fourth and fifth rib with breast cancer in 2016. Per operative report, the patient had a right-sided chest tube which was eventually removed. Tachycardia is now improved. Patient states that her shortness of breath is improved. No chest pain. She is able to ambulate without assistance and without oxygen. No fevers, chills. Past History Past Medical History: cancer (Metastatic right breast with chest wall, rib in volvement), other (See HPI) Past Surgical History: mastectomy, Other (Resection of right fourth and fifth rib with chest wall reconstruction, spinal surgery to remove metastatic tumor, brain surgery to remove metastasis, left shoulder surgery to remove tumor) Social history: . denies: smoking, alcohol abuse, prescription drug abuse Family history: no significant family history (Reviewed) Medications and Allergies Allergies Allergy/AdvReac Type Severity Reaction Status Date / Time No Known Allergies Allergy Verified 11/25/15 13:01 Home Medications Medication Instructions Recorded Confirmed Last Taken Type Morphine Sulfate 30 mg PO Q4HR PRN 12/22/19 12/22/19 12/21/19 History Active Meds: Active Medications Acetaminophen (Tylenol) 650 mg PO Q4H PRN PRN Reason: Pain MILD(1-3)/Fever >100.5/BEASLEY Albuterol (Proventil) 2.5 mg IH Q4HRT PRN PRN Reason: Shortness Of Breath Morphine Sulfate (Morphine) 2 mg IV Q4H PRN PRN Reason: Pain, Moderate (4-6) Last Admin: 12/23/19 03:18 Dose: 2 mg Documented by: Ondansetron HCl (Zofran) 4 mg IV Q8H PRN PRN Reason: Nausea And Vomiting Last Admin: 12/22/19 23:04 Dose: 4 mg Documented by: Sodium Chloride (Sodium Chloride Flush Syringe 10 Ml) 10 ml IV BID SARANYA Last Admin: 12/22/19 23:05 Dose: 10 ml Documented by: Sodium Chloride (Sodium Chloride Flush Syringe 10 Ml) 10 ml IV PRN PRN PRN Reason: LINE FLUSH Review of Systems All systems: negative (10 point review of systems was performed and negative except for that listed in HPI) Exam Vital Signs Temp Pulse Resp BP Pulse Ox 98.5 F 97 H 16 124/82 95 12/22/19 09:08 12/22/19 09:08 12/22/19 09:08 12/22/19 09:08 12/22/19 09:08 Narrative exam: Gen.: Awake, alert, oriented 3. No apparent distress ENT: No scleral icterus or conjunctival pallor CV: S1, S2 present. Left chest wall port Respiratory: No audible wheezes. + Dyspnea on exertion. No chest wall crepitus Extremities: No clubbing, cyanosis, edema Results - Labs 12/22/19 10:06 12/22/19 10:06 Abnormal lab results 12/22/19 12/22/19 12/22/19 Range/Units 10:06 10:06 10:06 MCH 25 L (28-32) pg RDW 22.6 H (13.2-15.2) % Lymph % (Auto) 6.0 L (13.4-35.0) % Winkler % (Auto) 12.6 H (0.0-7.3) % Lymph # 0.3 L (1.2-5.4) K/mm3 Seg Neutrophils % 81.0 H (40.0-70.0) % D-Dimer 1030.12 H (0-234) ng/mlDDU Sodium 136 L (137-145) mmol/L Potassium 3.3 L (3.6-5.0) mmol/L Creatinine 0.3 L (0.7-1.2) mg/dL Glucose 118 H (65-100) mg/dL Albumin 3.7 L (3.9-5) g/dL Diabetes panel 12/22/19 Range/Units 10:06 Sodium 136 L (137-145) mmol/L Potassium 3.3 L (3.6-5.0) mmol/L Chloride 98.7 (98-107) mmol/L Carbon Dioxide 23 (22-30) mmol/L BUN 9 (7-17) mg/dL Creatinine 0.3 L (0.7-1.2) mg/dL Glucose 118 H (65-100) mg/dL Calcium 8.8 (8.4-10.2) mg/dL AST 24 (5-40) units/L ALT 24 (7-56) units/L Alkaline Phosphatase 123 (35-129) units/L Total Protein 6.7 (6.3-8.2) g/dL Albumin 3.7 L (3.9-5) g/dL Calcium panel 12/22/19 Range/Units 10:06 Calcium 8.8 (8.4-10.2) mg/dL Albumin 3.7 L (3.9-5) g/dL Pituitary panel 12/22/19 Range/Units 10:06 Sodium 136 L (137-145) mmol/L Potassium 3.3 L (3.6-5.0) mmol/L Chloride 98.7 (98-107) mmol/L Carbon Dioxide 23 (22-30) mmol/L BUN 9 (7-17) mg/dL Creatinine 0.3 L (0.7-1.2) mg/dL Glucose 118 H (65-100) mg/dL Calcium 8.8 (8.4-10.2) mg/dL Adrenal panel 12/22/19 Range/Units 10:06 Sodium 136 L (137-145) mmol/L Potassium 3.3 L (3.6-5.0) mmol/L Chloride 98.7 (98-107) mmol/L Carbon Dioxide 23 (22-30) mmol/L BUN 9 (7-17) mg/dL Creatinine 0.3 L (0.7-1.2) mg/dL Glucose 118 H (65-100) mg/dL Calcium 8.8 (8.4-10.2) mg/dL Total Bilirubin 0.30 (0.1-1.2) mg/dL AST 24 (5-40) units/L ALT 24 (7-56) units/L Alkaline Phosphatase 123 (35-129) units/L Total Protein 6.7 (6.3-8.2) g/dL Albumin 3.7 L (3.9-5) g/dL - Imaging Chest x-ray: report reviewed, image reviewed CT scan - chest: report reviewed, image reviewed Assessment and Plan 39-year-old female with small right-sided pneumothorax CXR 12/23/19 - stable very small right apical PTX Pneumothorax is likely a result of postsurgical changes from the patient's chest wall surgery in 2016. 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 I do not believe this was causing the patient's acute shortness of breath. No acute surgical intervention at this time. Patient may be discharged from surgical standpoint. Discussed with Dr. Alarcon and Dr. Rice. Patient to follow up with her medical team at [facility] upon discharge. Thank you, please call with questions
--- NOTE | 2019-12-23 08:22 | XRay Report ---
CHEST 1 VIEW INDICATION: sob, f/u small right ptx. COMPARISON: 12/22/2019 FINDINGS: Support devices: Stable satisfactory device positioning. Left central venous catheter tip is at the c avoatrial junction. Heart: Stable cardiomegaly. Pulmonary vasculature: Pulmonary vessels are much more distinct. Mild redistribution of blood flow to the upper lobes. Lungs/Pleura: Improved left lower lobe subsegmental atelectasis at the elevated left hemidiaphragm. T he rest of the lungs are clear. No pleural effusion. Tiny right apical pneumothorax is unchanged sinc e yesterday CT chest. Additional findings: None. IMPRESSION: 1. CHF with interval improvement. No pulmonary edema. 2. Improved left lower lobe subsegmental atelectasis. 3. Stable small tiny apical pneumothorax. Signer Name: Neo Erickson MD Signed: 12/23/2019 8:17 AM Workstation Name: [id number]
--- NOTE | 2019-12-23 09:37 | Consultation ---
History of Present Illness Consult date: 12/23/19 Past History Past Medical History: cancer (Right breast with chest wall, rib involvement), other (See HPI) Past Surgical History: mastectomy, Other (Resection of right fourth and fifth rib with chest wall reconstruction) Social history: . denies: smoking, alcohol abuse, prescription drug abuse Family history: no significant family history (Reviewed) Medications and Allergies Allergies Allergy/AdvReac Type Severity Reaction Status Date / Time No Known Allergies Allergy Verified 11/25/15 13:01 Home Medications Medication Instructions Recorded Confirmed Last Taken Type Morphine Sulfate 30 mg PO Q4HR PRN 12/22/19 12/22/19 12/21/19 History Active Meds: Active Medications Acetaminophen (Tylenol) 650 mg PO Q4H PRN PRN Reason: Pain MILD(1-3)/Fever >100.5/BEASLEY Albuterol (Proventil) 2.5 mg IH Q4HRT PRN PRN Reason: Shortness Of Breath Morphine Sulfate (Morphine) 2 mg IV Q4H PRN PRN Reason: Pain, Moderate (4-6) Last Admin: 12/23/19 03:18 Dose: 2 mg Documented by: Ondansetron HCl (Zofran) 4 mg IV Q8H PRN PRN Reason: Nausea And Vomiting Last Admin: 12/22/19 23:04 Dose: 4 mg Documented by: Sodium Chloride (Sodium Chloride Flush Syringe 10 Ml) 10 ml IV BID SARANYA Last Admin: 12/22/19 23:05 Dose: 10 ml Documented by: Sodium Chloride (Sodium Chloride Flush Syringe 10 Ml) 10 ml IV PRN PRN PRN Reason: LINE FLUSH Physical Examination Vital signs: Vital Signs Temp Pulse Resp BP Pulse Ox 98.5 F 97 H 16 124/82 95 12/22/19 09:08 12/22/19 09:08 12/22/19 09:08 12/22/19 09:08 12/22/19 09:08 Results - Laboratory Findings CBC and BMP: 12/22/19 10:06 12/22/19 10:06 PT/INR, D-dimer D-Dimer 1030.12 ng/mlDDU (0-234) H 12/22/19 10:06 Abnormal lab findings: Abnormal Labs 12/22/19 12/22/19 12/22/19 10:06 10:06 10:06 MCH 25 L RDW 22.6 H Lymph % (Auto) 6.0 L Scurry % (Auto) 12.6 H Lymph # 0.3 L Seg Neutrophils % 81.0 H D-Dimer 1030.12 H Sodium 136 L Potassium 3.3 L Creatinine 0.3 L Glucose 118 H Albumin 3.7 L Assessment and Plan 39 y/o female with prior surgery on right, with prior chest tube, found to have small apical PTX on CT scan 1. No indication for Tube thoracostomy at this time 2. this could be trapped lung as this appears to be chronic and extremely small 3. Would not discharge on supplemental O2 unless patient qualifies for this.
[2019-12-23] MEDS ORDERED: MORPHINE SULFATE 30 MG PO PRN (10:47)
--- NOTE | 2019-12-23 10:50 | Progress Note ---
Hospitalist Physical - Constitutional Vitals: Temp Pulse Resp BP Pulse Ox 98.2 F 99 H 18 134/85 100 12/23/19 04:55 12/23/19 04:55 12/23/19 04:55 12/23/19 04:55 12/23/19 04:55 General appearance: Present: mild distress Results - Labs CBC & Chem 7: 12/22/19 10:06 12/22/19 10:06 Labs: Laboratory Last Values WBC 5.8 K/mm3 (4.5-11.0) 12/22/19 10:06 RBC 4.04 M/mm3 (3.65-5.03) 12/22/19 10:06 Hgb 10.2 gm/dl (10.1-14.3) 12/22/19 10:06 Hct 32.0 % (30.3-42.9) 12/22/19 10:06 MCV 79 fl (79-97) 12/22/19 10:06 MCH 25 pg (28-32) L 12/22/19 10:06 MCHC 32 % (30-34) 12/22/19 10:06 RDW 22.6 % (13.2-15.2) H 12/22/19 10:06 Plt Count 333 K/mm3 (140-440) 12/22/19 10:06 Lymph % (Auto) 6.0 % (13.4-35.0) L 12/22/19 10:06 [place] % (Auto) 12.6 % (0.0-7.3) H 12/22/19 10:06 Eos % (Auto) 0.2 % (0.0-4.3) 12/22/19 10:06 Baso % (Auto) 0.2 % (0.0-1.8) 12/22/19 10:06 Lymph # 0.3 K/mm3 (1.2-5.4) L 12/22/19 10:06 [place] # 0.7 K/mm3 (0.0-0.8) 12/22/19 10:06 Eos # 0.0 K/mm3 (0.0-0.4) 12/22/19 10:06 Baso # 0.0 K/mm3 (0.0-0.1) 12/22/19 10:06 Seg Neutrophils % 81.0 % (40.0-70.0) H 12/22/19 10:06 Seg Neutrophils # 4.7 K/mm3 (1.8-7.7) 12/22/19 10:06 D-Dimer 1030.12 ng/mlDDU (0-234) H 12/22/19 10:06 Sodium 136 mmol/L (137-145) L 12/22/19 10:06 Potassium 3.3 mmol/L (3.6-5.0) L 12/22/19 10:06 Chloride 98.7 mmol/L (98-107) 12/22/19 10:06 Carbon Dioxide 23 mmol/L (22-30) 12/22/19 10:06 Anion Gap 18 mmol/L 12/22/19 10:06 BUN 9 mg/dL (7-17) 12/22/19 10:06 Creatinine 0.3 mg/dL (0.7-1.2) L 12/22/19 10:06 Estimated GFR > 60 ml/min 12/22/19 10:06 BUN/Creatinine Ratio 30 % 12/22/19 10:06 Glucose 118 mg/dL (65-100) H 12/22/19 10:06 Calcium 8.8 mg/dL (8.4-10.2) 12/22/19 10:06 Total Bilirubin 0.30 mg/dL (0.1-1.2) 12/22/19 10:06 AST 24 units/L (5-40) 12/22/19 10:06 ALT 24 units/L (7-56) 12/22/19 10:06 Alkaline Phosphatase 123 units/L (35-129) 12/22/19 10:06 Troponin T < 0.010 ng/mL (0.00-0.029) 12/22/19 15:00 NT-Pro-B Natriuret Pep < 5 pg/mL (0-450) 12/22/19 10:06 Total Protein 6.7 g/dL (6.3-8.2) 12/22/19 10:06 Albumin 3.7 g/dL (3.9-5) L 12/22/19 10:06 Albumin/Globulin Ratio 1.2 % 12/22/19 10:06 Active Medications - Current Medications Current Medications: Generic Name Dose Route Start Last Admin Trade Name Freq PRN Reason Stop Dose Admin Acetaminophen 650 mg 12/22/19 16:10 Tylenol PO Q4H PRN Pain MILD(1-3)/Fever >100.5/BEASLEY Albuterol 2.5 mg 12/22/19 16:10 Proventil IH Q4HRT PRN Shortness Of Breath Miscellaneous Medication 30 mg 12/23/19 10:47 Morphine Sulfate [Morphine Sulfate] PO Q4HR PRN Pain , Severe (7-10) Morphine Sulfate 2 mg 12/22/19 22:37 12/23/19 03:18 Morphine IV 2 mg Q4H PRN Administration Pain, Moderate (4-6) Ondansetron HCl 4 mg 12/22/19 16:10 12/22/19 23:04 Zofran IV 4 mg Q8H PRN Administration Nausea And Vomiting Sodium Chloride 10 ml 12/22/19 22:00 12/23/19 10:38 Sodium Chloride Flush Syringe 10 Ml IV 10 ml BID SARANYA Administration Sodium Chloride 10 ml 12/22/19 16:10 Sodium Chloride Flush Syringe 10 Ml IV PRN PRN LINE FLUSH
[2019-12-23] MEDS ORDERED: MORPHINE 15 MG TAB PO PRN (10:56)
--- NOTE | 2019-12-23 12:45 | Vascular Lab Report ---
DUPLEX DOPPLER LOWER EXTREMITY VEINS, BILATERAL INDICATION: Elevated D-dimer, TECHNIQUE: Duplex doppler imaging was performed through the veins of both lower extremities using venous nadia terrance and other maneuvers. COMPARISON: None available. FINDINGS: Right Common femoral vein: Negative. Right Superficial femoral vein: Negative. Right Popliteal vein: Negative. Right Calf veins: Negative. Left Common femoral vein: Negative. Left Superficial femoral vein: Negative. Left Popliteal vein: Negative. Left Calf veins: Negative. Additional findings: None. IMPRESSION: 1. No sonographic evidence for DVT in either lower extremity. Signer Name: Jack Lala MD Signed: 12/23/2019 12:40 PM Workstation Name: [id number]
--- NOTE | 2019-12-23 13:29 | Discharge Summary ---
Providers - Providers Date of Admission: 12/22/19 16:10 Date of discharge: 12/23/19 Attending physician: GILBERT WANG 12/22/19 16:10 Consult to Physician [CONS] Routine Comment: Consulting Provider: JOY GENTILE Physician Instructions: Reason For Exam: right sided pneumothorax 12/22/19 16:15 Consult to Physician [CONS] Routine Comment: Consulting Provider: ARINA LOCO Physician Instructions: Reason For Exam: spontaneous pneumothorax small/right Primary care physician: SET UP OPERATOR TOOL Hospitalization Condition: Serious Disposition: DC-01 TO HOME OR SELFCARE Time spent for discharge: 32 min Core Measure Documentation - Palliative Care Palliative Care/ Comfort Measures: Not Applicable - Core Measures Any of the following diagnoses?: none Exam - Constitutional Vitals: Temp Pulse Resp BP Pulse Ox 98.2 F 99 H 18 134/85 100 12/23/19 04:55 12/23/19 04:55 12/23/19 04:55 12/23/19 04:55 12/23/19 04:55 General appearance: Present: no acute distress, well-nourished - EENT Eyes: Present: PERRL, EOM intact - Neck Neck: Present: supple, normal ROM - Respiratory Respiratory effort: normal Respiratory: bilateral: diminished, negative: rales, rhonchi, wheezing - Cardiovascular Rhythm: regular Heart Sounds: Present: S1 & S2 - Extremities Extremities: no ischemia, No edema - Abdominal General gastrointestinal: Present: soft, non-tender, non-distended, normal bowel sounds - Integumentary Integumentary: Present: clear, warm - Musculoskeletal Musculoskeletal: strength equal bilaterally - Psychiatric Psychiatric: appropriate mood/affect, cooperative - Neurologic Neurologic: CNII-XII intact, moves all extremities Plan Activity: advance as tolerated Diet: regular Follow up with: SHELDON SHAFER MD [Primary Care Provider] - 3-5 Days ARINA LOCO MD [Staff Physician] - 7 Days
[2019-12-23 13:44] VITALS: BP 116/87
[2019-12-23] MEDS ORDERED: NEOMY 3.5 MG/BACIT 400 UNITS/POLY B 5000 UNITS/GM OINT PACKET TP ONE (14:00)
== END 2019-12-23 15:14 | disposition home or self-care (01) ==
LOC: ED 08:46 → 3A 16:10
PROVIDERS: ADMIT Internal Medicine; ATTEND Internal Medicine
DX: J93.9 Pneumothorax, unspecified (principal); E87.6 Hypokalemia; Z85.3 Personal history of malignant neoplasm of breast
CPT/HCPCS: 36415; 71045; 71275; 80053; 83880; 84484; 85025; 85379; 87116; 93005; 93010; 93970; 94644; 94760; 96372; 96374; 96375; 96376; 99291; G0378; J1642; J2270; J2405; J7030; Q9967; A6250